=== PATIENT | female | born 1995 | race Native Hawaiian/Other Pacific Islander ===

== ENCOUNTER 2018-02-11 16:25 | Emergency (ER) | payer BC ==
[~2018-02-11] VITALS: Ht 162.6 cm; Wt 59.0 kg
[2018-02-11 17:45] VITALS: BP 118/76; TEMP 98.2
== END 2018-02-11 17:45 | disposition home or self-care (01) ==
LOC: ED 16:25
DX: L01.09 Other impetigo (principal)
CPT/HCPCS: 99281

== ENCOUNTER 2019-09-14 07:21 | Outpatient (CLI) | payer OTHER ==
[2019-09-14 07:38] LABS: PLATELET COUNT 208 K/uL (152-353)
[2019-09-14 08:00] LABS: POTASSIUM 3.9 mmol/L (3.6-5.2)
== END 2019-09-14 21:28 | disposition home or self-care (01) ==
LOC: LABW 07:21
PROVIDERS: Nurse Practitioner Family
DX: R51 Headache (principal); R00.2 Palpitations; R35.0 Frequency of micturition
CPT/HCPCS: 36415; 80053; 80061; 81000; 83036; 84439; 84443; 84481; 85027; 87088; 93005

== ENCOUNTER 2020-04-02 15:46 | Emergency (ER) | payer OTHER ==
[~2020-04-02] VITALS: Ht 162.6 cm; Wt 63.5 kg
[2020-04-02 15:52] VITALS: TEMP 99.1
[2020-04-02 16:36] LABS: PLATELET COUNT 212 K/uL (152-353)
[2020-04-02 16:44] LABS: POTASSIUM 3.1 mmol/L (3.6-5.2); SODIUM 140 mmol/L (136-145)
[2020-04-02 18:55] VITALS: BP 106/74
== END 2020-04-02 20:20 | disposition short-term general hospital (02) ==
LOC: ED 15:46
PROVIDERS: Family Medicine
DX: I47.1 Supraventricular tachycardia (principal); E87.6 Hypokalemia
CPT/HCPCS: 80053; 80307; 81000; 82550; 84484; 85027; 93005; 96360; 96365; 96375; 96376; 99285; J0153; J3490